=== PATIENT | female | born 1945 | race Caucasian/White ===

== ENCOUNTER → 2025-03-21 08:51 | Outpatient (CLI) | payer MEDICARE, OTHER, SELFPAY | LOC: RESP 08:53 | PROVIDERS: PCP Nurse Practitioner Family; Referring Provider Student in an Organized Health Care Education/Training Program; Visit Provider Student in an Organized Health Care Education/Training Program | DX: J44.9 Chronic obstructive pulmonary disease, unspecified (principal); Z87.891 Personal history of nicotine dependence; J98.8 Other specified respiratory disorders; R94.2 Abnormal results of pulmonary function studies | CPT/HCPCS: 94060; 94726; 94729 ==

== ENCOUNTER → 2025-03-29 10:31 | Outpatient (CLI) | payer MEDICARE, OTHER, SELFPAY ==
--- NOTE | 2025-03-29 10:32 | DI.ECHO.S_ITS ---
[place] +---------+ [facility] : : [address] : : [place] : : [id number] : : Phone: [phone] Echocardiogram Report + + :Name: ARIEL SILVA Study Date: 03/29/2025 Height: 63 in : :Hospital ReadingLocation: Weight: 130 lb : : Gender: Female BSA: 1.6 m2 : :: 1945 Age: 79 yrs BP: 135/69 mmHg: :Reason For Study: Pulmonary - Hypertension : :Ordering Physician: JUAN CARLOS, : :JIGNA Performed By: Teena Cage : :Referring: JIGNA RANGEL : + + Interpretation Summary The ejection fraction is estimated to be 60-65%. Grade II diastolic dysfunction with elevated left atrial pressure. The left atrium is moderately dilated. The right ventricle is mild to moderately dilated. The right ventricular systolic function is normal. The right atrium is mild to moderately dilated. There is mild tricuspid regurgitation. The right ventricular systolic pressure is estimated to be at least 50 mmHg based on an estimated right atrial pressure of 3 mm Hg. Procedure: A two-dimensional transthoracic echocardiogram with color flow and Doppler was performed. The study quality was technically adequate. There is no prior echocardiogram noted for this patient. The heart rate ranged between 58-60 bpm during the study. Left Ventricle: The left ventricle is normal in size and wall thickness. The ejection fraction is estimated to be 60-65%. Grade II diastolic dysfunction with elevated left atrial pressure. Right Ventricle: The right ventricle is mild to moderately dilated. The right ventricular systolic function is normal. Atria: The left atrium is moderately dilated. The right atrium is mild to moderately dilated. The interatrial septum grossly appears intact with no obvious evidence for an atrial septal defect. Mitral Valve: The mitral valve is grossly normal. There is trace mitral regurgitation. Aortic Valve: The aortic valve is trileaflet. The aortic valve opens well. There is no aortic valve stenosis. No aortic regurgitation is present. Tricuspid Valve: The tricuspid valve leaflets are thin and pliable. There is mild tricuspid regurgitation. The right ventricular systolic pressure is estimated to be at least 50 mmHg based on an estimated right atrial pressure of 3 mm Hg. Pulmonic Valve: Pulmonic valve root measures 3.5 cm. There is no pulmonic valvular stenosis. There is trace pulmonic regurgitation. Great Vessels: The aortic root is normal size. The ascending aorta is normal in size. The aortic arch is normal in size. The IVC is of normal diameter and collapses greater than 50% with a sniff. This suggests a low right atrial pressure of 3 mm Hg. Pericardium/ Pleura There is no pericardial effusion. There is no pleural effusion. MMode/2D Measurements & Calculations LVIDd: 3.9 cm LVOT diam: 2.0 cm LVIDs: 2.0 cm Ao root diam: 3.5 cm FS: 49.4 % asc Aorta Diam: 3.5 cm EPSS: 0.09 cm Ao Arch Diam (Prox Trans): 2.5 cm IVSd: 0.86 cm LVPWd: 0.79 cm LV parmar. diameter/BSA (cm/m^2): 2.4 LV sys. diameter/BSA (cm/m^2): 1.2 LA A2 area: 19.3 cm2 RA long axis: 4.2 cm LA A4 area: 21.0 cm2 RA area: 14.8 cm2 LA length (vol): 5.2 cm RA vol: 44.1 ml LA vol: 66.6 ml RA : 27.4 ml/m2 LA vol index: 41.3 ml/m2 IVC diam: 0.91 cm RVD1 (basal): 4.5 cm TAPSE: 2.1 cm Doppler Measurements & Calculations Ao V2 max: 149.4 cm/sec LVOT Max Darryl: 81.9 cm/sec Ao V2 mean: 104.9 cm/sec LV V1 max P.7 mmHg Ao max P.9 mmHg LV V1 VTI: 21.1 cm Ao mean P.9 mmHg DEE DEE(I,D): 1.7 cm2 Ao V2 VTI: 37.9 cm DEE DEE(V,D): 1.7 cm2 sev ratio: 0.56 DEE DEE indexed to BSA (cm^2/m^2): 1.0 MV E max darryl: 53.8 cm/sec TR max darryl: 341.4 cm/sec MV A max darryl: 73.9 cm/sec TR max P.6 mmHg MV E/A: 0.73 PA V2 max: 66.9 cm/sec Med Peak E' Darryl: 3.7 cm/sec PA V2 mean: 37.8 cm/sec E/E' med: 14.5 PA mean P.77 mmHg Lat Peak E' Darryl: 6.0 cm/sec PA pr(Accel): 19.1 mmHg E/E' lat: 9.0 E/e' average: 11.8 MV dec time: 0.26 sec SV(LVOT): 63.7 ml Reading Physician:01:[id number] PM
== END ==
LOC: ECHO 10:32
PROVIDERS: PCP Nurse Practitioner Family; Referring Provider Student in an Organized Health Care Education/Training Program; Visit Provider Student in an Organized Health Care Education/Training Program
DX: I07.1 Rheumatic tricuspid insufficiency (principal); I27.20 Pulmonary hypertension, unspecified
CPT/HCPCS: 36415; 80048; C8929; Q9957

== ENCOUNTER → 2025-04-21 11:21 | Outpatient (CLI) | payer MEDICARE, OTHER, SELFPAY ==
--- NOTE | 2025-04-21 11:25 | DI.CT.S_ITS ---
PROCEDURE: CT CHEST WO CON INDICATIONS: Hemoptysis TECHNIQUE: Noncontrast 5 mm thick sections acquired from the pulmonary apices to the posterior costophrenic angles. 1 mm lung window, 5 mm thick coronal and sagittal and 7 mm axial MIP reformats were then acquired. For radiation dose reduction, the following was used: automated exposure control, adjustment of mA and/or kV according to patient size. COMPARISON: Outside Facility, RG, CT ANGIO CHEST W / WO CONTRAST, 10/07/2024, 8:56. FINDINGS: Image quality: Diagnostic. Lower Neck: No enlarged lymph nodes. Thyroid: No thyroid nodules which require sonographic follow up, per consensus guidelines. Axillae: No enlarged lymph nodes. Chest Wall: Unremarkable. Bones: Interval compression deformity of T9 which results in vertebral plana. There is diffuse sclerosis of the vertebral body which may represent changes secondary to an osteoporotic versus pathologic compression fracture. No other lytic or blastic suspicious osseous lesion is identified.. Lungs and Pleura: No pneumothorax or pleural effusions. In the medial segment of the right lower lobe, there is a 6.6 x 5.7 x 5.2 cm lung mass mild which abuts the mediastinal pleura and the posterior aspect of the left atrium without fat plane. The mass abuts the posterior aspect of the bronchus intermedius. Background severe emphysema throughout both lungs with bullous change in the bilateral lower lobes. Additional soft tissue attenuating consolidation in the posterior right costophrenic angle measures approximately 2.1 x 2.7 cm (series 4, image 213), is suspicious for a intralobal satellite nodule. Heart: Heart size is normal. No pericardial effusion. Triple-vessel coronary artery calcifications. Thoracic Vessels: Normal caliber of the thoracic aorta. Similar chronic dilation of the central pulmonary trunk, which measures 4.1 cm. . Mediastinum and Lisa: Enlarged right lower or paratracheal 1.5 x 1.8 cm lymph node (2/43). Enlarged 1 x 1.3 cm right periaortic node at the diaphragmatic hiatus (2/79). Esophagus: No wall thickening. No hiatal hernia. Upper Abdomen: Visualized upper abdomen solid organs and bowel loops appear normal. IMPRESSION: 1. Right lower lobe 6 cm lung mass abuts the mediastinal pleura, posterior left atrium, and posterior bronchus intermedius, all concerning for local invasion, 2. 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 3. 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 4. Interval compression deformity of T9 with vertebra plana and diffuse osseous sclerosis. This may represent sclerosis in the setting of a subacute to chronic fracture healing versus possible underlying osseous lesion. Recommend correlation with thoracic spine CT with and without contrast. Dictated by: Seamus Jaimes M.D. on 04/21/2025 at 12:02 Approved by: Seamus Jaimes M.D. on 04/21/2025 at 12:15
== END ==
PROVIDERS: PCP Nurse Practitioner Family; Referring Provider Student in an Organized Health Care Education/Training Program; Visit Provider Student in an Organized Health Care Education/Training Program
DX: J43.2 Centrilobular emphysema (principal); I25.10 Atherosclerotic heart disease of native coronary artery without angina pectoris; R91.8 Other nonspecific abnormal finding of lung field; R59.0 Localized enlarged lymph nodes; M43.8X4 Other specified deforming dorsopathies, thoracic region
CPT/HCPCS: 71250